=== PATIENT | male | born 1960 | race Native Hawaiian/Other Pacific Islander ===

== ENCOUNTER 2016-11-21 07:59 | Day surgery (SDC) | payer BC | END 2016-11-21 11:16 | disposition home or self-care (01) | LOC: OR 07:59 | PROC: 0DB68ZZ Excision of Stomach, Via Natural or Artificial Opening Endoscopic (ICD-10-PCS; principal; 2016-11-21) | DX: K29.70 Gastritis, unspecified, without bleeding (principal); K25.9 Gastric ulcer, unspecified as acute or chronic, without hemorrhage or perforation; K31.7 Polyp of stomach and duodenum; R13.19 Other dysphagia; R11.2 Nausea with vomiting, unspecified | CPT/HCPCS: J2001; J2250; J2405; J2704 ==

== ENCOUNTER 2017-09-18 14:47 | Outpatient (CLI) | payer BC | END 2017-09-18 14:59 | disposition short-term general hospital (02) | LOC: AMB 14:47 | DX: R45.851 Suicidal ideations (principal); F10.129 Alcohol abuse with intoxication, unspecified | CPT/HCPCS: A0425; A0429 ==

== ENCOUNTER 2017-09-18 15:04 | Emergency (ER) | payer BC ==
[~2017-09-18] VITALS: Ht 177.8 cm; Wt 104.3 kg
[2017-09-18 15:26] LABS: PLATELET COUNT 246 K/uL (142-355); POTASSIUM 3.6 mmol/L (3.6-5.2)
[2017-09-18 22:05] VITALS: BP 148/85; TEMP 97.9
== END 2017-09-18 22:05 | disposition other institution (70) ==
LOC: ED 15:04
PROVIDERS: Emergency Medicine
DX: R45.851 Suicidal ideations (principal); F32.9 Major depressive disorder, single episode, unspecified; F10.129 Alcohol abuse with intoxication, unspecified; D50.9 Iron deficiency anemia, unspecified
CPT/HCPCS: 80053; 80307; 80320; 80329; 81000; 82550; 84484; 85027; 85610; 85730; 93005; 96360; 96361; 99285

== ENCOUNTER 2018-06-12 15:58 | Outpatient (CLI) | payer BC | END 2018-06-12 21:33 | disposition home or self-care (01) | LOC: RAD 15:58 | DX: Z01.818 Encounter for other preprocedural examination (principal) ==

== ENCOUNTER 2020-07-12 11:31 | Observation (INO) | payer BC ==
[~2020-07-12] VITALS: Ht 170.2 cm; Wt 110.8 kg
[2020-07-12 11:50] VITALS: BP 183/93; TEMP 97.5
[2020-07-12 12:23] LABS: PLATELET COUNT 221 K/uL (142-355)
[2020-07-12 12:30] LABS: POTASSIUM 3.3 mmol/L (3.6-5.2)
[2020-07-12 12:59] VITALS: BP 174/89
[2020-07-12 13:59] VITALS: BP 186/94; TEMP 97.6; Ht 170.2 cm; Wt 110.8 kg
[2020-07-12] MEDS ORDERED: KAPSPARGO SPRIN50 MG PO (14:40)
[2020-07-12] MEDS ORDERED: HYDR25TA60 PO (14:41)
[2020-07-12] MEDS ORDERED: COZAAR100 MG PO (14:42)
[2020-07-12] MEDS ORDERED: LIPITOR40 MG PO (14:43)
[2020-07-12] MEDS ORDERED: PRAS10TA PO (14:43)
[2020-07-12] MEDS ORDERED: AMBIEN5 MG PO (14:44)
[2020-07-12] MEDS ORDERED: OMEPRAZOLE40 MG PO (14:45)
[2020-07-12] MEDS ORDERED: ASPIRIN 81 LOW81 MG PO (14:45)
[2020-07-12 16:00] VITALS: BP 171/89; TEMP 98.1
[2020-07-12 20:00] VITALS: BP 133/94; TEMP 98.2
[2020-07-13] VITALS (7 sets, daily range): BP systolic 145–180; BP diastolic 68–96; TEMP 97.5–98.6
[2020-07-13 06:11] LABS: PLATELET COUNT 217 K/uL (142-355)
[2020-07-13 06:23] LABS: POTASSIUM 4.5 mmol/L (3.6-5.2)
[2020-07-13] MEDS ORDERED: LORA1TAB17 PO (14:49)
[2020-07-14 03:28] VITALS: BP 148/74; TEMP 98.6
[2020-07-14 08:00] VITALS: BP 188/96; TEMP 98.1
[2020-07-14 10:17] LABS: POTASSIUM 4.5 mmol/L (3.6-5.2)
[2020-07-14 12:00] VITALS: BP 147/78; TEMP 97.9
[2020-07-14] MEDS ORDERED: ASCO500T18 PO (12:16)
[2020-07-14] MEDS ORDERED: CHOL100034 PO (12:17)
[2020-07-14] MEDS ORDERED: FAMOTIDINE20 MG PO (12:17)
[2020-07-14] MEDS ORDERED: SOD CHLORIDE1 GM PO (12:18)
[2020-07-14] MEDS ORDERED: ZINC220C4 PO (12:18)
== END 2020-07-14 14:08 | disposition home or self-care (01) ==
LOC: ED 11:31 → MED/SURG 12:45
PROVIDERS: Hospitalist; ADMIT Internal Medicine; ATTEND Internal Medicine
DX: U07.1 COVID-19 (principal); E87.1 Hypo-osmolality and hyponatremia; I25.10 Atherosclerotic heart disease of native coronary artery without angina pectoris; I10 Essential (primary) hypertension; F41.8 Other specified anxiety disorders; K21.9 Gastro-esophageal reflux disease without esophagitis; E66.8 Other obesity
CPT/HCPCS: 36415; 80048; 80053; 81000; 82948; 83036; 85027; 93005; 94760; 96360; 96361; 96365; 96372; 96374; 96375; 99220; 99284; G0378; J1100; J1650; J1815; J2405

== ENCOUNTER 2021-02-11 08:06 | Outpatient (CLI) | payer BC ==
[~2021-02-11] VITALS: Ht 172.7 cm; Wt 112.5 kg
[~2021-02-11 08:06] MED LIST: AMBIEN5 MG PO; ASCO500T18 PO; ASPIRIN 81 LOW81 MG PO; CHOL100034 PO; COZAAR100 MG PO; FAMOTIDINE20 MG PO; HYDR25TA60 PO; KAPSPARGO SPRIN50 MG PO; LIPITOR40 MG PO; LORA1TAB17 PO; OMEPRAZOLE40 MG PO; PRAS10TA PO; SOD CHLORIDE1 GM PO; ZINC220C4 PO
== END 2021-02-11 20:19 | disposition home or self-care (01) ==
LOC: NM 08:06
PROVIDERS: ATTEND Internal Medicine Cardiovascular Disease
DX: R07.9 Chest pain, unspecified (principal); R06.9 Unspecified abnormalities of breathing
CPT/HCPCS: A9500; J2785

== ENCOUNTER 2021-10-05 10:17 | Outpatient (CLI) | payer BC | END 2021-10-05 18:57 | disposition home or self-care (01) | LOC: RAD 10:17 | PROVIDERS: ATTEND Nurse Practitioner Family | DX: R06.02 Shortness of breath (principal) ==

== ENCOUNTER 2021-10-25 13:40 | Emergency (ER) | payer BC ==
[~2021-10-25] VITALS: Ht 172.7 cm; Wt 108.9 kg
[2021-10-25 14:42] LABS: PLATELET COUNT 211 K/uL (142-355)
[2021-10-25 14:51] LABS: POTASSIUM 4.3 mmol/L (3.6-5.2)
[2021-10-25 15:48] VITALS: BP 154/88; TEMP 98.1
== END 2021-10-25 15:48 | disposition home or self-care (01) ==
LOC: ED 13:40
PROVIDERS: Emergency Medicine Emergency Medical Services
DX: I10 Essential (primary) hypertension (principal)
CPT/HCPCS: 36415; 80048; 83735; 84484; 85027; 93005; 96360; 96374; 99284; J0360

== ENCOUNTER 2021-10-27 08:54 | Outpatient (CLI) | payer BC | END 2021-10-27 19:15 | disposition home or self-care (01) | LOC: CT 08:54 | PROVIDERS: ATTEND Nurse Practitioner Family | DX: K46.9 Unspecified abdominal hernia without obstruction or gangrene (principal); R11.0 Nausea; Z78.9 Other specified health status | CPT/HCPCS: Q9963 ==

== ENCOUNTER 2021-12-28 12:56 | Outpatient (CLI) | payer BC ==
[2021-12-28 13:22] LABS: PLATELET COUNT 255 K/uL (142-355); POTASSIUM 3.7 mmol/L (3.6-5.2)
== END 2021-12-28 19:16 | disposition home or self-care (01) ==
LOC: LABW 12:56
PROVIDERS: ATTEND Specialist
DX: I25.10 Atherosclerotic heart disease of native coronary artery without angina pectoris (principal); I10 Essential (primary) hypertension
CPT/HCPCS: 36415; 80048; 85027